=== PATIENT | female | born 1990 | race Two or more races ===

== ENCOUNTER 2021-07-02 15:34 | Inpatient (IN) ==
[2021-07-02] MEDS ORDERED: OXYTOCIN 30 UNITS/500 ML BAG IV PRN (16:11)
[2021-07-02] MEDS ORDERED: DINOPROSTONE 10 MG INSERT PV ONE (16:11)
[2021-07-02 16:33] LABS: Hematocrit (blood only) 34.1 % (37-47); Mean Corpuscular Hemoglobin 26.7 pg (25-34); Mean Corpuscular Hgb Conc 32.3 g/dL (32-36); Mean Corpuscular Volume 82.8 fL (80-100); Mean Platelet Volume 9.3 fL (7.4-10.4); Platelet Count 433 K/uL (130-400); RDW Coefficient of Variation 17.6 % (11.5-14.5); RDW Standard Deviation 51.4 fL (36.4-46.3); Red Blood Count 4.12 M/uL (4.2-5.4); White Blood Count 18.51 K/uL (4.8-10.8)
[2021-07-02 16:50] LABS: Alanine Aminotransferase 9 U/L (12-78); Albumin Level 2.6 gm/dl (3.4-5.0); Aspartate Aminotransferase 6 U/L (15-37); BUN Creatinine Ratio 9.9 (10-20); Blood Urea Nitrogen 4 mg/dl (7-18); Calcium 8.6 mg/dl (8.5-10.1); Carbon Dioxide 19 mmol/L (21-32); Chloride 108 mmol/L (98-107); Creatinine Clr Calc Pharmacy 93.3 ml/min; Est GFR (African American) > 150.0 ml/min; Est GFR (Non-African American) 136.4 ml/min; Glucose 77 mg/dl (70-99); Sodium 136 mmol/L (136-145)
[2021-07-02 16:53] LABS: Albumin Globulin Ratio 0.6 (0.9-2); Alkaline Phosphatase 208 U/L (45-117); Bilirubin,Total 0.3 mg/dl (0.2-1); Globulin 4.4 gm/dl (2.5-4.0)
--- NOTE | 2021-07-02 17:22 | History & Physical Report ---
Date of Service July 02, 2021 Assessment & Plan (1) IUGR (intrauterine growth restriction): Plan: 30-year-old G1, P0 at 39 weeks of gestation presenting from [facility] office, recommended to have induction of labor at term due to IUGR with normal Dopplers and normal BPP, Vital signs stable afebrile, heart rate reassuring, GBS negative, Cervix is unfavorable, Plan to admit, monitor, labs, cervical ripening with prostaglandins. Patient is hungry desires to eat before we start induction. She understands induction may take 1 to 2 days and what to expect during. All questions were answered. Admission and Anticipated Discharge Date Admission Date: July 02, 2021 History of Present Illness Chief Complaint: Sent from [facility] office Primary Care Provider: NO PCP Patient is a 30-year-old G1, P0 at 39 weeks of gestation who was seen by [facility] office today for suspected IUGR. Ultrasound showed estimated weight to be less than 10 percentile at 2800 g with normal Doppler studies and BPP of 8 out of 8. She was recommended to be induced at 39 weeks. She has no complaints, denies contractions, leakage of fluid, vaginal bleeding. She reports good movements. She denies any medical problems nor surgeries. She has been on iron and vitamin C. She denies any allergies to medications. She was a transfer care from [facility] around 30 weeks and her labs were within normal limits. Allergies Allergy/AdvReac Type Severity Reaction Status Date / Time No Known Allergies Allergy Unverified 07/02/21 15:56 Home Medications Medication Instructions Recorded Confirmed Type iron,carbonyl 65 mg-vitamin C 125 1 tab PO DAILY 07/02/21 07/02/21 History mg tablet,delayed release (Vitron-C) Patient History Medical History No known health problems Surgical History No history of previous surgery Family History Other Family history of diabetes mellitus in father Social History Smoking Status: Never smoker Hx Alcohol Use: No Hx Substance Use: No Preferred Language: Gujarati Communication Ability: Impaired Communication Tools: IPad Donor Recruiter Required: Yes and Voice Beliefs That Will Affect Care: None marital status: Current Living Situation: Spouse and Family Other Information That Helps Us Care for You: No Feels Safe at Home: Yes Safety Concerns: Feels Safe At This Time Assistive Devices: None Review of Systems as per Subjective / HPI Physical Exam Constitutional: well developed and + thin She is comfortable, smiling, not in acute distress Gastrointestinal (Abdomen): normal bowel sounds, soft, nontender, no hepatosplenomegaly (Gravid, John 6 pounds) Genitourinary: normal external appearance OB Exam Abdomen: + vertex Manual OB Exam: + cervical dilation (0), + cervical effacement 50% and + station high OB Exam Monitor Tracing: + external uterine monitor used and + category I [facility] & [facility] ([facility]) Laboratory Results Lab Results 07/02/21 07/02/21 07/02/21 Range/Units 16:23 16:23 Unknown WBC 18.51 H (4.8-10.8) K/uL RBC 4.12 L (4.2-5.4) M/uL Hgb 11.0 L (12.0-16.0) g/dL Hct 34.1 L (37-47) % MCV 82.8 (80-100) fL MCH 26.7 (25-34) pg MCHC 32.3 (32-36) g/dL RDW Std Deviation 51.4 H (36.4-46.3) fL RDW Coeff of Paulina 17.6 H (11.5-14.5) % Plt Count 433 H (130-400) K/uL MPV 9.3 (7.4-10.4) fL Sodium 136 (136-145) mmol/L Potassium 4.0 (3.5-5.1) mmol/L Chloride 108 H (98-107) mmol/L Carbon Dioxide 19 L (21-32) mmol/L Anion Gap 9.0 (3-11) BUN 4 L (7-18) mg/dl Creatinine 0.45 L (0.6-1.2) mg/dl Est Cr Clr Drug Dosing 93.3 ml/min Est GFR ( Amer) > 150.0 ml/min Est GFR (Non-Af Amer) 136.4 ml/min BUN/Creatinine Ratio 9.9 L (10-20) Glucose 77 (70-99) mg/dl Calcium 8.6 (8.5-10.1) mg/dl Total Bilirubin 0.3 (0.2-1) mg/dl AST 6 L (15-37) U/L ALT 9 L (12-78) U/L Alkaline Phosphatase 208 H (45-117) U/L Total Protein 7.0 (6.4-8.2) gm/dl Albumin 2.6 L (3.4-5.0) gm/dl Globulin 4.4 H (2.5-4.0) gm/dl Albumin/Globulin Ratio 0.6 L (0.9-2) COVID-19 [facility] SARS-CoV-2, RNA, NAAT (NEGATIVE) 07/02/21 Range/Units Unknown WBC (4.8-10.8) K/uL RBC (4.2-5.4) M/uL Hgb (12.0-16.0) g/dL Hct (37-47) % MCV (80-100) fL MCH (25-34) pg MCHC (32-36) g/dL RDW Std Deviation (36.4-46.3) fL RDW Coeff of Paulina (11.5-14.5) % Plt Count (130-400) K/uL MPV (7.4-10.4) fL Sodium (136-145) mmol/L Potassium (3.5-5.1) mmol/L Chloride (98-107) mmol/L Carbon Dioxide (21-32) mmol/L Anion Gap (3-11) BUN (7-18) mg/dl Creatinine (0.6-1.2) mg/dl Est Cr Clr Drug Dosing ml/min Est GFR ( Amer) ml/min Est GFR (Non-Af Amer) ml/min BUN/Creatinine Ratio (10-20) Glucose (70-99) mg/dl Calcium (8.5-10.1) mg/dl Total Bilirubin (0.2-1) mg/dl AST (15-37) U/L ALT (12-78) U/L Alkaline Phosphatase (45-117) U/L Total Protein (6.4-8.2) gm/dl Albumin (3.4-5.0) gm/dl Globulin (2.5-4.0) gm/dl Albumin/Globulin Ratio (0.9-2) COVID-19 Eval Order SARS-CoV-2, RNA, NAAT NEGATIVE (NEGATIVE)
[2021-07-03] MEDS: BUTORPHANOL TARTRATE 1 MG/ML VIAL IV PRN ×4 (04:02→12:59)
[2021-07-03] MEDS: LACTATED RINGER'S 1,000 ML IV PRN ×3 (04:07→15:23)
[2021-07-03] MEDS ORDERED: OXYTOCIN 30 UNITS/500 ML BAG IV PRN ×2 (09:53→21:42)
--- NOTE | 2021-07-03 09:53 | Labor Progress Brief Note ---
Date of Service July 03, 2021 Assessment & Plan Admission and Anticipated Discharge Date Admission Date: July 02, 2021 Physical Exam Genitourinary: no vaginal lesions, no adnexal mass OB Exam Abdomen: + estimated weight (6.5 lbs) Manual OB Exam: + cervical dilation 1 cm, + cervical effacement 70%, + station high and + amniotic fluid clear OB Exam Monitor Tracing: + external FHT monitor used, + external uterine monitor used, + category I and + normal FHT variability bedside ultrasound confirms vertex will start Oxytocin to augment contractions language line used Results & Data ([facility]) Vital Signs (Past 12 Hours) Vital Signs Temp Pulse Resp BP 07/03/21 07:12 88 101/54 L 07/03/21 07:00 36.7 C 88 18 101/54 L 07/03/21 05:55 36.7 C 18 07/03/21 04:07 91 H 101/52 L 07/03/21 04:06 36.7 C 18 07/02/21 23:08 36.7 C 88 18 106/61
[2021-07-03] MEDS ORDERED: fentaNYL citrate 100 MCG/2 ML VIAL ONE (14:40)
[2021-07-03] MEDS ORDERED: SODIUM CHLORIDE 0.9% INJ 10 ML VIAL ONE (14:40)
[2021-07-03] MEDS ORDERED: ePHEDrine sulfate 50 MG/ML AMP ONE (14:40)
[2021-07-03] MEDS ORDERED: BUPIVACAINE 0.25% 30 ML VIAL ONE (14:40)
[2021-07-03] MEDS ORDERED: fentaNYL 2MCG/ML ROPIVACAINE 1.25MG/ML 100 ML BAG EPI ONE (14:41)
[2021-07-03] MEDS ORDERED: diphenhydrAMINE 50 MG/ML VIAL IV PRN (14:51)
[2021-07-03] MEDS ORDERED: ePHEDrine sulfate 50 MG/ML AMP IV PRN (14:51)
[2021-07-03] MEDS ORDERED: NALOXONE HCL 0.4 MG/1 ML VIAL/CARP IV PRN (14:51)
[2021-07-03] MEDS ORDERED: fentaNYL 2MCG/ML ROPIVACAINE 1.25MG/ML 100 ML BAG EPI PRN (14:51)
[2021-07-03] MEDS ORDERED: NALBUPHINE HCL INJ 10 MG/ML AMP IV PRN (14:51)
[2021-07-03] MEDS ORDERED: NALOXONE HCL 1 MG in SODIUM CHLORIDE 0.9% 1000ML 1,000 ML IV PRN (14:51)
[2021-07-03] MEDS ORDERED: ONDANSETRON INJ 2 MG/ML 2 ML VIAL IV PRN (14:51)
--- NOTE | 2021-07-03 14:54 | Anesthesiology Consultation ---
Date of Service July 03, 2021 Assessment & Plan Chart Review Chart Review: Patient NOT seen in Pre Admission Testing and Acceptable Risk for Labor Epidural Consults Requested none ASA ASA2 Proposed Anesthesia Anesthesia Type: Labor Epidural and CSE Risk / Benefits Reviewed With: PT / POA / Parent / Guardian, Accepts Plan and Informed Consent Obtained History Height/Weight Height: 5 ft 2 in Weight: 70 kg Allergies Allergy/AdvReac Type Severity Reaction Status Date / Time No Known Allergies Allergy Unverified 07/02/21 15:56 Medications Home Medications Medication Instructions Recorded Confirmed Last Taken iron,carbonyl 65 mg-vitamin C 125 1 tab PO DAILY 07/02/21 07/02/21 07/01/21 07:30 mg tablet,delayed release (Vitron-C) Active Medications Generic Name Dose Route Start Last Admin Trade Name Freq PRN Reason Stop Dose Admin Butorphanol Tartrate 1 mg 07/03/21 00:07 07/03/21 12:59 Butorphanol Tartrate 1 Mg/Ml Vial IV 08/02/21 00:06 1 mg Q3HWA PRN Administration Pain Lactated Ringer's 1,000 mls @ 150 mls/hr 07/02/21 16:11 07/03/21 13:47 Lr IV 07/04/21 16:10 999 mls/hr .Q6H40M PRN Infusion L&D Protocol Protocol Oxytocin 30 units in 500 mls @ 7 mls/hr 07/03/21 09:53 07/03/21 13:02 Pitocin IV 07/05/21 09:52 0.42 units/hr .Q24H PRN 7 mls/hr Labor Induction/Augmentation Titration Protocol 0.42 UNITS/HR NPO Date Last Intake of Fluids: 07/03/21 Time Last Intake of Fluids: 13:00 Date Last Intake of Solids: 07/02/21 Time Last Intake of Solids: 19:00 Past Medical History Medical History No known health problems Exercise / Class Metabolic Activity II 4-5 Yardwork/Stairs/Walk up hill Past Family History Family History Other Family history of diabetes mellitus in father Past Surgical History Surgical History No history of previous surgery Past Anesthesia History No Hx of Anesthesia Complications and No Family Hx of Anesthesia Complications History of PONV No Hx of PONV and No Hx of Motion Sickness Social History Smoking Status: Never smoker Hx Alcohol Use: No Hx Substance Use: No Review of Systems no chest pain or sob Physical Exam Vital Signs Last Vital Signs Temp 36.8 C 07/03/21 12:59 Pulse 99 H 07/03/21 14:23 Resp 18 07/03/21 14:00 BP 113/56 L 07/03/21 14:23 SpO2 100 ENMT Mouth: no TMJ abnormality Thyromental Distance: > or= 3.5 Finger Breadths Mallampati Class: II Neck normal visual inspection Respiratory normal respiratory effort Auscultation: lungs clear to auscultation bilaterally Cardiovascular Rate/Rhythm: regular rate and regular rhythm Musculoskeletal Spine: normal cervical ROM Neurologic moves all extremities Psychiatric Orientation: alert and oriented x 3 Testing Laboratory Results 07/02/21 16:23 07/02/21 16:23
--- NOTE | 2021-07-03 21:17 | Delivery Summary ---
Vaginal Delivery Summary Date of Service July 03, 2021 Vaginal Delivery Summary Delivery Note live female over intact perineum with delayed cord clamping and Apgars 8/9 weight pending. Cord blood obtained followed by spontaneous delivery of intact placenta. No tears. EBL 100 ml. Final sponge and instrument count are correct. Mom and baby stable.
[2021-07-03] MEDS ORDERED: ACETAMINOPHEN 325 MG TAB PO PRN (21:42)
[2021-07-03] MEDS ORDERED: BENZOCAINE 20% AER SPR 82.5 GM CAN EXT PRN (21:42)
[2021-07-03] MEDS ORDERED: SUPERCREAM 0.870% 15 GM JAR EXT PRN (21:42)
[2021-07-03] MEDS ORDERED: HYDROCORTISONE ACETATE 25 MG SUPP PR PRN (21:42)
[2021-07-03] MEDS ORDERED: DIPHTHERIA/TETANUS/PERTUSSIS 0.5 ML SYR/VIAL IM ONE (21:42)
[2021-07-03] MEDS: IBUPROFEN 600 MG TAB PO PRN (22:22)
--- NOTE | 2021-07-03 22:25 | Anesthesia Procedure Note ---
Date of Service July 03, 2021 Anesthesia Post Epidural Note Vital Signs Vital Signs: Temp Pulse Resp BP Pulse Ox 37.1 C 103 H 18 114/55 L 100 07/03/21 19:10 07/03/21 22:10 07/03/21 21:25 07/03/21 22:10 07/03/21 20:44 Pain Intensity Lower Back: Pain Intensity: 0 Notes Mental Status: alert / awake / arousable and participated in evaluation Nausea / Vomiting: adequately controlled Pain: adequately controlled Airway Patency, RR, SpO2: stable & adequate BP & HR: stable & adequate Hydration State: stable & adequate Neuraxial Anesthesia: was administered and sensory block is resolving Anesthetic Complications: no major complications apparent and Pt Satisfied with anesthetic care Epidural: Removed without complications and With tip intact
[2021-07-04] MEDS: IBUPROFEN 600 MG TAB PO PRN ×3 (03:07→20:07)
[2021-07-04 07:21] LABS: Hematocrit (blood only) 31.1 % (37-47); Hemoglobin 9.9 g/dL (12.0-16.0); Mean Corpuscular Hemoglobin 26.9 pg (25-34); Mean Corpuscular Hgb Conc 31.8 g/dL (32-36); Mean Corpuscular Volume 84.5 fL (80-100); Mean Platelet Volume 9.4 fL (7.4-10.4); Platelet Count 397 K/uL (130-400); RDW Coefficient of Variation 17.9 % (11.5-14.5); RDW Standard Deviation 53.4 fL (36.4-46.3); Red Blood Count 3.68 M/uL (4.2-5.4); White Blood Count 26.63 K/uL (4.8-10.8)
--- NOTE | 2021-07-04 08:36 | Obstetrical Progress Note ---
Date of Service July 04, 2021 Assessment & Plan Admission and Anticipated Discharge Date Admission Date: July 02, 2021 Subjective Patient is seen and examined. She feels well, no complaints. Ambulating without dizziness Tolerating regular diet with out N&V Bleeding is minimal No fever/ chills/ CP/ SOB/ N&V/ Leg pain Breast feeding without problems Unable to void since delivery [facility] 1400 ml this morning at 6 am and tried again now unable to void Recommended Robles to drain until tomorrow am, she likes to try 1 more time to void Vital Signs Temp Pulse Pulse Resp BP BP Pulse Ox 07/04/21 04:20 36.7 C 86 16 104/71 07/03/21 22:40 37.5 C 110 H 20 120/67 07/03/21 22:25 107 H 122/68 07/03/21 22:10 103 H 18 114/55 L 07/03/21 21:55 101 H 123/64 07/03/21 21:41 106 H 125/61 07/03/21 21:40 18 07/03/21 21:25 111 H 18 116/65 07/03/21 21:10 96 H 18 116/60 07/03/21 20:55 117 H 16 120/61 07/03/21 20:44 120 H 100 07/03/21 20:40 115 H 18 118/62 07/03/21 20:39 112 H 100 Lab Results 07/02/21 07/02/21 07/02/21 Range/Units 16:23 16:23 Unknown WBC 18.51 H (4.8-10.8) K/uL RBC 4.12 L (4.2-5.4) M/uL Hgb 11.0 L (12.0-16.0) g/dL Hct 34.1 L (37-47) % MCV 82.8 (80-100) fL MCH 26.7 (25-34) pg MCHC 32.3 (32-36) g/dL RDW Std Deviation 51.4 H (36.4-46.3) fL RDW Coeff of Paulina 17.6 H (11.5-14.5) % Plt Count 433 H (130-400) K/uL MPV 9.3 (7.4-10.4) fL Sodium 136 (136-145) mmol/L Potassium 4.0 (3.5-5.1) mmol/L Chloride 108 H (98-107) mmol/L Carbon Dioxide 19 L (21-32) mmol/L Anion Gap 9.0 (3-11) BUN 4 L (7-18) mg/dl Creatinine 0.45 L (0.6-1.2) mg/dl Est Cr Clr Drug Dosing 93.3 ml/min Est GFR ( Amer) > 150.0 ml/min Est GFR (Non-Af Amer) 136.4 ml/min BUN/Creatinine Ratio 9.9 L (10-20) Glucose 77 (70-99) mg/dl Calcium 8.6 (8.5-10.1) mg/dl Total Bilirubin 0.3 (0.2-1) mg/dl AST 6 L (15-37) U/L ALT 9 L (12-78) U/L Alkaline Phosphatase 208 H (45-117) U/L Total Protein 7.0 (6.4-8.2) gm/dl Albumin 2.6 L (3.4-5.0) gm/dl Globulin 4.4 H (2.5-4.0) gm/dl Albumin/Globulin Ratio 0.6 L (0.9-2) COVID-19 Eval Order Covid19 [facility] SARS-CoV-2, RNA, NAAT (NEGATIVE) 07/02/21 07/04/21 Range/Units Unknown 07:07 WBC 26.63 H (4.8-10.8) K/uL RBC 3.68 L (4.2-5.4) M/uL Hgb 9.9 L (12.0-16.0) g/dL Hct 31.1 L (37-47) % MCV 84.5 (80-100) fL MCH 26.9 (25-34) pg MCHC 31.8 L (32-36) g/dL RDW Std Deviation 53.4 H (36.4-46.3) fL RDW Coeff of Paulina 17.9 H (11.5-14.5) % Plt Count 397 (130-400) K/uL MPV 9.4 (7.4-10.4) fL Sodium (136-145) mmol/L Potassium (3.5-5.1) mmol/L Chloride (98-107) mmol/L Carbon Dioxide (21-32) mmol/L Anion Gap (3-11) BUN (7-18) mg/dl Creatinine (0.6-1.2) mg/dl Est Cr Clr Drug Dosing ml/min Est GFR ( Amer) ml/min Est GFR (Non-Af Amer) ml/min BUN/Creatinine Ratio (10-20) Glucose (70-99) mg/dl Calcium (8.5-10.1) mg/dl Total Bilirubin (0.2-1) mg/dl AST (15-37) U/L ALT (12-78) U/L Alkaline Phosphatase (45-117) U/L Total Protein (6.4-8.2) gm/dl Albumin (3.4-5.0) gm/dl Globulin (2.5-4.0) gm/dl Albumin/Globulin Ratio (0.9-2) COVID-19 Eval Order SARS-CoV-2, RNA, NAAT NEGATIVE (NEGATIVE) PE: General: Alert, orientedx3, NAD Abd: soft, NT, fundus firm, below Umbilicus Perineum intact, Lochia rubra minimal, mild edema of labia majora BL Ext; NT, no edema AP: 30 yo s/p , ppd# 1 VSS Afebrile doing well Urinary retention since delivery, plan Robles if unable at 9 am as she desires Continue routine care All questions were answered D/C home tomorrow Results & Data ([facility]) Vital Signs (Past 12 Hours) Vital Signs Temp Pulse Pulse Resp BP BP Pulse Ox 07/04/21 04:20 36.7 C 86 16 104/71 07/03/21 22:40 37.5 C 110 H 20 120/67 07/03/21 22:25 107 H 122/68 07/03/21 22:10 103 H 18 114/55 L 07/03/21 21:55 101 H 123/64 07/03/21 21:41 106 H 125/61 07/03/21 21:40 18 07/03/21 21:25 111 H 18 116/65 07/03/21 21:10 96 H 18 116/60 07/03/21 20:55 117 H 16 120/61 07/03/21 20:44 120 H 100 07/03/21 20:40 115 H 18 118/62 07/03/21 20:39 112 H 100 07/03/21 20:34 115 H 100
[2021-07-04] MEDS: PRENATAL VITAMIN 1 TAB PO SCH (08:43)
[2021-07-04] MEDS: DOCUSATE SODIUM 100 MG CAP PO SCH ×2 (08:43→20:07)
[2021-07-04] MEDS ORDERED: NON-FORMULARY MEDICATION (Iron,Carbonyl-Vitamin C [Vitron-C] 65 mg iron- 125 mg Tablet,Del PO SCH (09:00)
[2021-07-04] MEDS ORDERED: bisacodyL 5 MG TABEC PO SCH (20:00)
[2021-07-05] MEDS ORDERED: bisacodyL 10 MG SUPP PR PRN (06:00)
[2021-07-05 06:33] LABS: Hematocrit (blood only) 32.1 % (37-47)
[2021-07-05] MEDS: PRENATAL VITAMIN 1 TAB PO SCH (08:03)
[2021-07-05] MEDS: DOCUSATE SODIUM 100 MG CAP PO SCH (08:03)
--- NOTE | 2021-07-05 11:14 | Obstetrical Progress Note ---
Date of Service July 05, 2021 Assessment & Plan Admission and Anticipated Discharge Date Admission Date: July 02, 2021 Subjective Patient is seen and examined. She feels well, no complaints other than discomfort of bladder Unable to void since Robles catheter was removed at 6 am. Ambulating without dizziness Tolerating regular diet with out N&V Bleeding is minimal No fever/ chills/ CP/ SOB/ N&V/ Leg pain Breast and bottle feeding without problems Vital Signs Temp Pulse Resp BP BP Pulse Ox 07/05/21 07:30 36.7 C 80 18 119/78 99 07/04/21 23:17 36.8 C 81 16 116/75 99 07/04/21 19:03 37 C 83 16 101/66 100 07/04/21 16:00 36.9 C 85 18 108/72 07/04/21 13:25 36.5 C 74 20 105/68 100 Intake and Output 07/04/21 07/05/21 07/05/21 22:59 06:59 14:59 Output Total 800 / 1650 850 / 1650 Balance -800 / -1650 -850 / -1650 Output: Urine 800 / 800 Urine Amount (Catheter) 850 / 850 Robles/Indwelling 850 / 850 PE: General: Alert, orientedx3, NAD Abd: tender from bladder distention, scan > 575 ml Perineum intact, Lochia rubra minimal Patient does not allow touch or exam. Ext; NT, no edema AP: 30 yo s/p , ppd# 2 with urinary retention, s/p Robles yesterday still unable to void with discomfort. Discussed straith cath now and she self cath at home vs indwelling Robles catheter for 2-3 days and d/c in office She prefers Robles catheter now and come to office for removal ( used translation line for communication) VSS Afebrile doing well All questions were answered D/C home with Robles and f/u in office Results & Data ([facility]) Vital Signs (Past 12 Hours) Vital Signs Temp Pulse Resp BP Pulse Ox 07/05/21 07:30 36.7 C 80 18 119/78 99 07/04/21 23:17 36.8 C 81 16 116/75 99
[2021-07-05] MEDS ORDERED: NITROFURANTOIN MONOHYDRATE 100 MG CAP PO STA (11:17)
== END 2021-07-05 14:45 | disposition home or self-care (01) | DRG 807 ==
LOC: 4S1 15:34 → 4S2 07-03 23:24